=== PATIENT | female | born 1955 | race Caucasian/White ===

== ENCOUNTER 2017-04-06 18:44 | Emergency (ER) | payer MEDICARE, OTHER ==
[~2017-04-06] VITALS: Ht 162.6 cm; Wt 114.3 kg
[~2017-04-06 18:44] MED LIST: ATOR40TA59 PO; CYCL5TAB PO; DEXL60CA2 PO; DIAZ5TAB PO; FENO135C2 PO; FLUO40CA9 PO; FURO20TA3 PO; GABA300S PO; HYDR-2758 PO; HYDR-971 PO; LEVO200T5 PO; LEVO5TAB2 PO; LISI2.5T PO; MECL25TA3 PO; METF10002 PO; MONT10TA6 PO; NIAC500T9 PO; NITR100C62 PO; POTA20TA82 PO; ROPI4TAB4 PO; SOLI5TAB2 PO; SOTA80TA48 PO; WARF7.5T6 PO
[2017-04-06 18:50] VITALS: BP 138/73
[2017-04-06 19:12] LABS: BASO # 0.1 x10^3/uL (0.0-0.2); BASO % 1 % (0-3); EOS % 0 % (0-3); HEMATOCRIT 41.8 % (36.0-47.0); LYMPH % 12 % (24-48); MEAN CORPUSCULAR HEMOGLOBIN 29 pg (25-35); MEAN CORPUSCULAR HGB CONC 34 g/dL (31-37); MEAN CORPUSCULAR VOLUME 87 fL (79-100); MONO # 0.8 x10^3/uL (0.0-1.1); MONO % 10 % (0-9); NEUT # 6.3 x10^3uL (1.8-7.7); NEUT % 77 % (31-73); PLATELET COUNT 214 x10^3/uL (140-400); RED CELL DISTRIBUTION WIDTH 17.2 % (11.5-14.5); WHITE BLOOD COUNT 8.2 x10^3/uL (4.0-11.0)
[2017-04-06 19:25] LABS: ALBUMIN 3.6 g/dL (3.4-5.0); ALBUMIN/GLOBULIN RATIO 0.9 (1.0-1.7); CALCIUM 8.8 mg/dL (8.5-10.1); CREATININE 1.9 mg/dL (0.6-1.0); GFR 26.8; POTASSIUM 3.7 mmol/L (3.5-5.1); TOTAL BILIRUBIN 0.6 mg/dL (0.2-1.0); TOTAL PROTEIN 7.8 g/dL (6.4-8.2)
--- NOTE | 2017-04-06 20:28 | PHYS DOC ---
Past History Past Medical History: CAD, CHF, Diabetes, High Cholesterol, Heart Disease, Hypertension, Hypothyroid, Sciatica, Other Past Surgical History: Cholecystectomy, Hysterectomy, Other Smoking: Non-smoker Alcohol Use: None Drug Use: None Adult General Chief Complaint Chief Complaint: CHEST PAIN HPI HPI Patient is a 61 year old F who presents with chest pain and shortness of breath that came on all of a sudden approximately an hour and a half prior to arrival. However in the emergency room the patient is asymptomatic and her chest pain has been resolved. His have a cardiac history with one stent placed and a mitral valve replaced. Patient's cardiologists at . Patient denies any fevers. Patient denies any nausea/vomiting/diarrhea. Patient has no other complaints. Patient like to go home now since she feels back to normal. Pertinent exam findings: Heart was regular rate and rhythm without any murmurs Lungs are clear to auscultation bilaterally without crackles wheezes or rales ED course: Patient was seen and evaluated CBC, CMP, troponin, EKG, chest x-ray were ordered 2025: Patient was reexamined and updated on lab results and x-ray results. Patient is asymptomatic with no chest pain. Given the patient's cardiac history I recommended patient be admitted to the hospital for further cardiac evaluation. Patient has refused admission to the hospital for serial troponins and EKGs understanding all risks including and disability. Patient will follow-up with her soda drier feeder at and return symptoms increase. Pertinent results: 1853: EKG shows normal sinus rhythm rate of 76 no STEMI Troponin was negative MDM: After reviewing the chart, CC/HPI/PMH, physical exam, [lab results], [ radiological results], I do not believe the patient is having a STEMI, PE ( Wells score 0), and low suspicion for acute thoracic aortic dissection. Given the patient's cardiac risk factors I recommended the patient be admitted to the hospital for further cardiac workup in which she declined understanding all risks including and disability. Patient like to be discharged home and follow-up with her soda drier feeder as an outpatient. Patient is stable for discharge. Additional verbal discharge instructions were provided to the patient and that if symptoms get worse or any new symptoms arise that are worrisome to the patient she is to return to the emergency room immediately Review of Systems Review of Systems GEN: Denies fevers, chills, sweats HEENT: Denies blurred vision, sore throat CV: chest pain RESP: Denies shortness of air, cough GI: Denies n/v/d NEURO: Denies confusion, dizziness MSK: Denies weakness, joint pain/swelling Allergies Allergies Allergies Coded Allergies Type Severity Reaction Last Updated Verified Cortisone Allergy Intermediate swelling 05/02/14 Yes Physical Exam Physical Exam GEN.: No apparent distress. Alert and oriented. HEENT: Head is normocephalic, atraumatic NECK: Supple. LUNGS: CTAB. HEART: RRR, S1, S2 present. Peripheral pulses intact ABDOMEN: Soft, nontender. Positive bowel sounds. EXTREMITIES: Without any cyanosis. NEUROLOGIC: Normal speech, normal tone PSYCHIATRIC: Normal affect, normal mood. SKIN: No ulcerations Current Patient Data Vital Signs Vital Signs Date Time Temp Pulse Resp B/P (MAP) Pulse Ox O2 Delivery O2 Flow Rate FiO2 04/06/17 18:50 98.2 86 16 97 Room Air Lab Results Laboratory Tests Test 04/06/17 18:57 04/06/17 19:25 White Blood Count 8.2 x10^3/uL (4.0-11.0) Red Blood Count 4.80 x10^6/uL (3.50-5.40) Hemoglobin 14.0 g/dL (12.0-15.5) Hematocrit 41.8 % (36.0-47.0) Mean Corpuscular Volume 87 fL (79-100) Mean Corpuscular Hemoglobin 29 pg (25-35) Mean Corpuscular Hemoglobin Concent 34 g/dL (31-37) Red Cell Distribution Width 17.2 % (11.5-14.5) H Platelet Count 214 x10^3/uL (140-400) Neutrophils (%) (Auto) 77 % (31-73) H Lymphocytes (%) (Auto) 12 % (24-48) L Monocytes (%) (Auto) 10 % (0-9) H Eosinophils (%) (Auto) 0 % (0-3) Basophils (%) (Auto) 1 % (0-3) Neutrophils # (Auto) 6.3 x10^3uL (1.8-7.7) Lymphocytes # (Auto) 1.0 x10^3/uL (1.0-4.8) Monocytes # (Auto) 0.8 x10^3/uL (0.0-1.1) Eosinophils # (Auto) 0.0 x10^3/uL (0.0-0.7) Basophils # (Auto) 0.1 x10^3/uL (0.0-0.2) Sodium Level 138 mmol/L (136-145) Potassium Level 3.7 mmol/L (3.5-5.1) Chloride Level 101 mmol/L (98-107) Carbon Dioxide Level 24 mmol/L (21-32) Anion Gap 13 (6-14) Blood Urea Nitrogen 28 mg/dL (7-20) H Creatinine 1.9 mg/dL (0.6-1.0) H Estimated GFR (Cockcroft-Gault) 26.8 BUN/Creatinine Ratio 15 (6-20) Glucose Level 243 mg/dL (70-99) H Calcium Level 8.8 mg/dL (8.5-10.1) Total Bilirubin 0.6 mg/dL (0.2-1.0) Aspartate Amino Transferase (AST) 27 U/L (15-37) Alanine Aminotransferase (ALT) 27 U/L (14-59) Alkaline Phosphatase 158 U/L (46-116) H Troponin I Quantitative < 0.017 ng/mL (0-0.055) Total Protein 7.8 g/dL (6.4-8.2) Albumin 3.6 g/dL (3.4-5.0) Albumin/Globulin Ratio 0.9 (1.0-1.7) L Prothrombin Time 29.0 SEC (9.4-11.4) H Prothrombin Time INR 2.8 (0.9-1.1) H EKG EKG Normal sinus rhythm rate of 76 no STEMI [] Radiology/Procedures Radiology/Procedures Chest x-ray NAD [] Course & Med Decision Making Course & Med Decision Making Pertinent Labs and Imaging studies reviewed. (See chart for details) [] Dragon Disclaimer Dragon Disclaimer This chart was dictated in whole or in part using Voice Recognition software in a busy, high-work load, and often noisy Emergency Department environment. It may contain unintended and wholly unrecognized errors or omissions. Departure Departure: Impression: Primary Impression: Chest pain Disposition: 01 HOME, SELF-CARE Condition: IMPROVED Referrals: PCP,NO (PCP) Patient Instructions: Chest Pain (Nonspecific) Additional Instructions: Please follow up with her family One to 2 days and return symptoms increase Problem Qualifiers Primary Impression: Chest pain Chest pain type: unspecified Qualified Codes: R07.9 - Chest pain, unspecified MICHAEL MOISE DO Apr 06, 2017 20:28
--- NOTE | 2017-04-07 00:01 | EKG ---
[address] [address] Test Date: 2017-04-06 Test Time: 18:54:55 Pat Name: ELSY REN Department: Room: Gender: F Exerciser: : [id number] Requested By: MICHAEL MOISE Order Number: [id number] Reading MD: Rich Melo Measurements Intervals [place] Rate: 76 P: -138 [place]: 162 QRS: 42 QRSD: 84 T: 64 QT: 442 QTc: 502 Interpretive Statements SINUS RHYTHM PROLONGED QT Electronically Signed On 04-11-2017 8:24:40 CDT by Rich Melo
--- NOTE | 2017-04-07 08:52 | RAD ---
Chest, 2 views, 04/06/2017: History: Chest pain, shortness of breath Comparison is made to a study from 07/07/2014. A mitral valvular prosthesis is in place. The heart size and pulmonary vascularity are normal. No pulmonary infiltrate is seen. There is no evidence of pleural fluid. Moderate spurring is present in the spine. Surgical sutures are evident in the upper abdomen. IMPRESSION: 1. Previous mitral valve surgery. 2. No acute cardiopulmonary abnormality is detected.
== END 2017-04-06 20:36 | disposition home or self-care (01) ==
LOC: ER 18:44
DX: R07.9 Chest pain, unspecified (principal); E03.9 Hypothyroidism, unspecified; E11.9 Type 2 diabetes mellitus without complications; E78.00 Pure hypercholesterolemia, unspecified; I11.0 Hypertensive heart disease with heart failure; I25.10 Atherosclerotic heart disease of native coronary artery without angina pectoris; I50.9 Heart failure, unspecified; Z88.8 Allergy status to other drugs, medicaments and biological substances
CPT/HCPCS: 36415; 71020; 80053; 84484; 85027; 85610; 93005; 99285-25

== ENCOUNTER → 2017-05-19 | Outpatient (CLI) | payer MEDICARE, OTHER ==
[2017-04-06 20:30] VITALS: BP 114/83
--- NOTE | 2017-05-19 14:52 | RAD ---
INDICATION:rt groin lump painful post heart cath 05-09-17 COMPARISON: None. FINDINGS: Focused ultrasound images were obtained through the right groin. Within the right groin there is a hypoechoic nonvascular complex region adjacent to the common femoral vessels measuring 56 x 45 x 28 mm. The common femoral artery and common femoral vein have vascular flow adjacent to this region. There are some scattered lymph nodes within the region IMPRESSION: Hypoechoic region is seen within the soft tissues adjacent to the femoral vessels. This could be secondary to a hematoma within the region although a component of thrombosed pseudoaneurysm is not excluded on this exam since it would have a similar ultrasound appearance to a hematoma. There is no definite vascular flow to this region to suggest a nonthrombosed pseudoaneurysm. Report called to the ordering provider's office at 2:45 PM on 05/19/2017.
== END | disposition home or self-care (01) ==
LOC: US 13:40
PROVIDERS: ATTEND Internal Medicine Advanced Heart Failure and Transplant Cardiology
DX: I50.32 Chronic diastolic (congestive) heart failure (principal); I27.2 Other secondary pulmonary hypertension; M79.604 Pain in right leg; R10.31 Right lower quadrant pain; R19.09 Other intra-abdominal and pelvic swelling, mass and lump
CPT/HCPCS: 76881

== ENCOUNTER 2017-07-05 17:25 | Emergency (ER) | payer MEDICARE, OTHER ==
[~2017-07-05] VITALS: Ht 162.6 cm; Wt 113.9 kg
[2017-07-05 18:33] LABS: BASO # 0.1 x10^3/uL (0.0-0.2); BASO % 1 % (0-3); EOS % 0 % (0-3); HEMATOCRIT 39.2 % (36.0-47.0); LYMPH % 10 % (24-48); MEAN CORPUSCULAR HEMOGLOBIN 30 pg (25-35); MEAN CORPUSCULAR HGB CONC 33 g/dL (31-37); MEAN CORPUSCULAR VOLUME 90 fL (79-100); MONO # 1.1 x10^3/uL (0.0-1.1); MONO % 11 % (0-9); NEUT # 8.2 x10^3uL (1.8-7.7); NEUT % 79 % (31-73); PLATELET COUNT 223 x10^3/uL (140-400); RED BLOOD COUNT 4.35 x10^6/uL (3.50-5.40); RED CELL DISTRIBUTION WIDTH 17.8 % (11.5-14.5); WHITE BLOOD COUNT 10.4 x10^3/uL (4.0-11.0)
[2017-07-05 18:43] LABS: ALBUMIN 3.6 g/dL (3.4-5.0); ALBUMIN/GLOBULIN RATIO 0.9 (1.0-1.7); CALCIUM 9.3 mg/dL (8.5-10.1); CREATININE 1.6 mg/dL (0.6-1.0); DIRECT BILIRUBIN 0.2 mg/dL (0.0-0.2); GFR 32.6; POTASSIUM 3.8 mmol/L (3.5-5.1); TOTAL BILIRUBIN 0.8 mg/dL (0.2-1.0); TOTAL PROTEIN 7.6 g/dL (6.4-8.2)
[2017-07-05 18:45] VITALS: BP 100/54
--- NOTE | 2017-07-05 19:02 | ED.ADGEN ---
Past History Past Medical History: CAD, CHF, Diabetes, High Cholesterol, Heart Disease, Hypertension, Hypothyroid, Sciatica, Other Past Surgical History: Cholecystectomy, Hysterectomy, Other Smoking: Non-smoker Alcohol Use: None Drug Use: None Adult General Chief Complaint Chief Complaint " I take coumadin for my mech. heart value.. but my INR was up.. when I see the doctor yesterday...so we reduced by 1/2, but I had this bruising but the bruising seems worse today. Doctor's office will need to come to the ER HPI HPI Patient is a 62 year old female who presents with above hx and complaints of Hx. of elevated INR, was seen at Dr. Gordon office yesterday.. and told to reduce her dosage 1/2, ( 7.5 nl dosage for her). Pt. did have some ecchymosis area at injection of insulin, and multiple other mayra of minor trauma areas, Lt upper arm, Rt. and Lt. side of lower flanks and on legs where shins ave bumped. Pt. Follows a [facility] for all her care. See Dr. Lazo Cardio. , Dr. Gordon as primary, Dr Angie BALLARD, Pt has hx mitral mech. valuve, NSAHepaitis, ESRDz , Dm, , HTN, and Deconditioning. Pt. call office Dr. Gordon and was told to go to ED. Pt. denies other changes in diet, meds or significant exposures. Pt. does not remember trauma as causes of some of the ecchymosis area, but 1/2 does have a source - contusion s ect. and Review of Systems Review of Systems Constitutional: Denies fever or chills [] Eyes: Denies change in visual acuity, redness, or eye pain [] HENT: Denies nasal congestion or sore throat [] Respiratory: Denies cough or shortness of breath [] Cardiovascular: No additional information not addressed in HPI [] GI: Denies abdominal pain, nausea, vomiting, bloody stools or diarrhea [] : Denies dysuria or hematuria [] Musculoskeletal: Denies back pain or joint pain [] Integument: Denies rash or skin lesions []Complaints of ecchymosis Neurologic: Denies headache, focal weakness or sensory changes [] Endocrine: Denies polyuria or polydipsia [] Family History Family History DM, HTN Current Medications Current Medications See Nursing for home meds Allergies Allergies Allergies Coded Allergies Type Severity Reaction Last Updated Verified Cortisone Allergy Intermediate swelling 05/02/14 Yes Physical Exam Physical Exam Constitutional:d, no acute distress, non-toxic appearance. [] HENT: Normocephalic, atraumatic, bilateral external ears normal, oropharynx moist, no oral exudates, nose normal. [] Eyes: PERRLA, EOMI, conjunctiva normal, no discharge. [] Neck: Normal range of motion, no tenderness, supple, no stridor. [] Cardiovascular:Heart rate regular rhythm, []Mitral click Lungs & Thorax: Bilateral breath sounds clear to auscultation [] Abdomen: Bowel sounds normal, soft, no tenderness, no masses, no pulsatile masses. [] Obese. Old scar. s Skin: Warm, dry, no erythema, no rash. [] Areas of ecchymosis as per HPI. No petechia. Back: No tenderness, no CVA tenderness. [] Extremities: No tenderness, no cyanosis, no clubbing, ROM intact, no edema. [] Neurologic: Alert and oriented X 3, normal motor function, normal sensory function, no focal deficits noted. [] Psychologic: Affect normal, judgement normal, mood normal. [] Current Patient Data Vital Signs Vital Signs Date Time Temp Pulse Resp B/P (MAP) Pulse Ox O2 Delivery O2 Flow Rate FiO2 07/05/17 18:45 87 20 100/54 (69) 99 Room Air 07/05/17 17:25 98.0 Lab Results Laboratory Tests Test 07/05/17 18:07 White Blood Count 10.4 x10^3/uL (4.0-11.0) Red Blood Count 4.35 x10^6/uL (3.50-5.40) Hemoglobin 13.0 g/dL (12.0-15.5) Hematocrit 39.2 % (36.0-47.0) Mean Corpuscular Volume 90 fL (79-100) Mean Corpuscular Hemoglobin 30 pg (25-35) Mean Corpuscular Hemoglobin Concent 33 g/dL (31-37) Red Cell Distribution Width 17.8 % (11.5-14.5) H Platelet Count 223 x10^3/uL (140-400) Neutrophils (%) (Auto) 79 % (31-73) H Lymphocytes (%) (Auto) 10 % (24-48) L Monocytes (%) (Auto) 11 % (0-9) H Eosinophils (%) (Auto) 0 % (0-3) Basophils (%) (Auto) 1 % (0-3) Neutrophils # (Auto) 8.2 x10^3uL (1.8-7.7) H Lymphocytes # (Auto) 1.0 x10^3/uL (1.0-4.8) Monocytes # (Auto) 1.1 x10^3/uL (0.0-1.1) Eosinophils # (Auto) 0.0 x10^3/uL (0.0-0.7) Basophils # (Auto) 0.1 x10^3/uL (0.0-0.2) Prothrombin Time 28.0 SEC (9.4-11.4) H Prothrombin Time INR 2.7 (0.9-1.1) H PTT 57 SEC (23-33) H Sodium Level 136 mmol/L (136-145) Potassium Level 3.8 mmol/L (3.5-5.1) Chloride Level 98 mmol/L (98-107) Carbon Dioxide Level 30 mmol/L (21-32) Anion Gap 8 (6-14) Blood Urea Nitrogen 23 mg/dL (7-20) H Creatinine 1.6 mg/dL (0.6-1.0) H Estimated GFR (Cockcroft-Gault) 32.6 BUN/Creatinine Ratio 14 (6-20) Glucose Level 98 mg/dL (70-99) Calcium Level 9.3 mg/dL (8.5-10.1) Total Bilirubin 0.8 mg/dL (0.2-1.0) Direct Bilirubin 0.2 mg/dL (0.0-0.2) Aspartate Amino Transferase (AST) 26 U/L (15-37) Alanine Aminotransferase (ALT) 29 U/L (14-59) Alkaline Phosphatase 147 U/L (46-116) H Total Protein 7.6 g/dL (6.4-8.2) Albumin 3.6 g/dL (3.4-5.0) Albumin/Globulin Ratio 0.9 (1.0-1.7) L EKG EKG [] Radiology/Procedures Radiology/Procedures [] Course & Med Decision Making Course & Med Decision Making Pertinent Labs and Imaging studies reviewed. (See chart for details) Pt. to follow up with primary, and call for next Coumadin dosage, and time for recheck. Copy labs sent with Pt. [] Final Impression Final Impression 1. INR therapeutic at 2.7[] 2. Complaints of Ecchymosis- Problems: Dragon Disclaimer Dragon Disclaimer This electronic medical record was generated, in whole or in part, using a voice recognition dictation system. MARICRUZ RICCI MD Jul 05, 2017 19:01
== END 2017-07-05 19:12 | disposition home or self-care (01) ==
LOC: ER 17:25
DX: R58 Hemorrhage, not elsewhere classified (principal); E03.9 Hypothyroidism, unspecified; E11.9 Type 2 diabetes mellitus without complications; I11.0 Hypertensive heart disease with heart failure; I50.9 Heart failure, unspecified; E78.00 Pure hypercholesterolemia, unspecified; I25.10 Atherosclerotic heart disease of native coronary artery without angina pectoris; Z79.4 Long term (current) use of insulin; Z88.8 Allergy status to other drugs, medicaments and biological substances
CPT/HCPCS: 36415; 80053; 82248; 85025; 85610; 85730; 99284

== ENCOUNTER → 2018-06-29 | Outpatient (CLI) | payer MEDICARE, OTHER ==
[~2018-06-29] MED LIST changes: -METF10002 PO; +METF10007 PO; +ROPI4TAB10 PO; -ROPI4TAB4 PO; +WARF7.5T45 PO; -WARF7.5T6 PO
[2018-06-29 11:44] LABS: CALCIUM 9.5 mg/dL (8.5-10.1); CREATININE 1.6 mg/dL (0.6-1.0); GFR 32.5; POTASSIUM 4.2 mmol/L (3.5-5.1)
== END | disposition home or self-care (01) ==
LOC: LAB 11:02
PROVIDERS: ATTEND Internal Medicine Advanced Heart Failure and Transplant Cardiology
DX: I11.0 Hypertensive heart disease with heart failure (principal); I50.32 Chronic diastolic (congestive) heart failure; E11.9 Type 2 diabetes mellitus without complications; I25.10 Atherosclerotic heart disease of native coronary artery without angina pectoris; E78.00 Pure hypercholesterolemia, unspecified; E03.9 Hypothyroidism, unspecified; I25.2 Old myocardial infarction
CPT/HCPCS: 36415; 80048